=== PATIENT | male | born 1995 | race Caucasian/White ===

== ENCOUNTER 2025-03-06 23:47 | Emergency (ER) | payer BC, SELFPAY ==
[2025-03-06 23:48] VITALS: BMI 28.8
[2025-03-07] VITALS: BP 129/79; PULSE 64; RESP 16; TEMP 37; O2SAT 98
--- NOTE | 2025-03-07 00:19 | PD.EDHA ---
ED Headache RME/HPI General Chief Complaint: Headache Stated Complaint: HEADACHE, DIZZINESS Time Seen by Provider: 03/07/25 00:03 Arrival date/time: 03/06/25 23:47 Mode of arrival: ambulatory Limitations: no limitations RME / HPI RME / HPI Narrative: 30-year-old male presents to the ED with a complaint of a headache that began approximately 12 hours ago. Patient denies fever. He also complains of extreme nausea but denies vomiting. MD Complaint: headache Onset (ago): hour(s) (12) Time: 11:00 Onset description: sudden Location: occipital and neck Severity: severe Severity scale (1-10): 9 Quality: aching Relieving factors: nothing Exacerbating factors: none Context: occurred at rest Associated symptoms: none, fever (Fever), nausea and vomiting (Denies vomiting) Related Data Home Medications ?Medication ?Instructions ?Recorded ?Confirmed ergocalciferol (vitamin D2) 1,250 1,250 mcg PO QWEEK 12/27/20 12/27/20 mcg (50,000 unit) capsule (Vitamin D2) paroxetine HCl 20 mg tablet 20 mg PO QDAY 12/27/20 12/27/20 Previous Rx's ?Medication ?Instructions ?Recorded docusate sodium 100 mg capsule 100 mg PO BID #40 caps 12/28/20 (Colace) hydrocodone 5 mg-acetaminophen 325 1 tab PO Q6H PRN pain (scale score 12/28/20 mg tablet (Shelburn) 7-10) #20 tabs Allergies Allergy/AdvReac Type Severity Reaction Status Date / Time ibuprofen Allergy Intermediate Rash Verified 03/06/25 23:50 Review of Systems Review of Systems Systems Reviewed: All systems reviewed, normal except as documented Eyes Eyes: Reports system reviewed and no additional complaints, except as documented ED Exam General Limitations: Present no limitations General appearance: Present alert and in no apparent distress Head Head exam: Present atraumatic, normocephalic and normal inspection Eye Eye exam: Present normal appearance, PERRL and EOMI ENT ENT exam: Present normal exam and normal oropharynx Neck Neck exam: Present normal inspection and full ROM Chest Chest inspection: Present normal inspection Extremities Exam Extremities exam: Present normal inspection and full ROM Back Exam Back exam: Present normal inspection and full ROM Neurological Exam Neurological exam: Present alert and oriented X3 Psychiatric Psychiatric exam: Present normal affect and normal mood Skin Skin exam: Present warm, dry, intact and normal color Other Other exam information: Patient is able to touch his index finger to his nose. Patient is also able to walk in tandem, patient is also able to His heels to his shins. Paper was also able to draw his lower extremities up to his chest with his neck flexed. Course Quality Measures none Orders Category Date Time Status DiphenhydrAMINE INJ [Benadryl Inj] Med 03/07/25 00:14 Discontinued 50 mg IM X1 ONE Metoclopramide [Reglan] Med 03/07/25 00:14 Discontinued 10 mg PO X1 ONE Ondansetron Odt [Zofran Odt] Med 03/07/25 00:14 Discontinued 4 mg PO X1 ONE Vital Signs Vital signs: Vital Signs Temperature 98.6 F 03/07/25 00:00 Pulse Rate 64 03/07/25 00:00 Respiratory Rate 16 03/07/25 00:00 Blood Pressure 129/79 03/07/25 00:00 Pulse Oximetry (%) 98 03/07/25 00:00 Oxygen Delivery Method Room Air 03/07/25 00:00 Headache Patient data External records reviewed:: Other (specify) Clinical information provided by:: patient Social determinants that could affect healthcare access:: housing Patient has the following chronic illnesses:: NA How is presenting disease/condition affected by chronic disease/condition?: caused by Evaluation data The following diagnostics were reviewed and interpreted by me:: lab results Lab and/or radiology exams considered but not ordered:: NA Interpretation Summary: NA Medications / Prescriptions Medications or Prescriptions considered but not ordered:: NA Medication administrations:: Medication Administration History Discontinued Medications Diphenhydramine HCl (Diphenhydramine Inj 50 Mg/Ml Vial) 50 mg IM X1 ONE Stop: 03/07/25 00:15 Last Admin: 03/07/25 00:37 Dose: Not Given Documented By: KF Non-Admin Reason: Cancelled by Provider Metoclopramide HCl (Metoclopramide 5 Mg Tablet) 10 mg PO X1 ONE Stop: 03/07/25 00:15 Last Admin: 03/07/25 00:37 Dose: Not Given Documented By: KF Non-Admin Reason: Cancelled by Provider Ondansetron HCl (Ondansetron Odt 4 Mg Tabrap) 4 mg PO X1 ONE; Protocol Stop: 03/07/25 00:15 Last Admin: 03/07/25 00:38 Dose: Not Given Documented By: LAZARO Non-Admin Reason: Cancelled by Provider ABOVE MEDICATION DC'C Consultations Consultation(s) initiated? (list below): No Diagnosis Differential diagnosis headache: migraine, tension headache, subarachnoid hemorrhage, headache and meningitis Most likely diagnosis given after review of the tests above:: na Admission Indicated Admission indicated?: not indicated Admission Request Was there a request for admission?: No Disposition Plan Disposition Plan: Discharge Discharge Attestation Discharge Attestation: The patient and all family members were given an opportunity to ask questions and understood the discharge instructions. Discharge instructions specifically effects, indications for sooner follow up or return to the emergency department, and the expected course of current diagnosis. Patient condition: Stable Discharge Plan Plan Patient Disposition: HOME (Self Care) Disposition Comment: Patient discharged in no apparent distress Patient condition on transfer: Stable Prescriptions/Referrals Prescriptions/Med Rec: No Action paroxetine HCl 20 mg Tablet 20 mg PO QDAY ergocalciferol (vitamin D2) [Vitamin D2] 1,250 mcg (50,000 unit) Capsule 1,250 mcg PO QWEEK hydrocodone-acetaminophen [Shelburn] 5-325 mg tablet 1 tab PO Q6H MDD 4 PRN (Reason: pain (scale score 7-10)) Qty: 20 0RF docusate sodium [Colace] 100 mg capsule 100 mg PO BID Qty: 40 0RF Problem List Clinical Impression: Headache Patient/Caregiver Discharge Instructions Education Materials: Self-Care for Headaches Print Language: Pashto PA/FRYER LINE HELPER Supervising Physician PA/FRYER LINE HELPER Supervising Physician: MARIA VICTORIA
== END 2025-03-07 01:00 | disposition home or self-care (01) ==
LOC: SERX 03-07 00:44
PROVIDERS: Emergency Provider Emergency Medicine; PCP Family Medicine
DX: R51.9 Headache, unspecified (principal)
CPT/HCPCS: 99281